=== PATIENT | male | born 1995 | race Two or more races ===

== ENCOUNTER 2023-12-23 23:51 | Emergency (ER) | payer OTHER ==
[~2023-12-23] VITALS: Ht 182.9 cm; Wt 89.4 kg
[2023-12-24] MEDS ORDERED: DIPHENHYDRAMINE HCL 50 MG/ML VIAL 1ML IV ONE (01:00)
[2023-12-24] MEDS ORDERED: 0.9 % SODIUM CHLORIDE 1,000 ML IV SCH (01:00)
[2023-12-24 01:44] LABS: HEMATOCRIT 42.3 % (39.0-48.0); HEMOGLOBIN 14.9 g/dL (13-16.00); MEAN CELL VOLUME 85.6 fL (80.0-100.00); MEAN CORPUSCULAR HEMOGLOBIN 30.1 pg (27.00-32.0); MEAN CORPUSCULAR HGB CONC 35.2 g/dl (32.0-36.0); PLATELET COUNT 308 K/uL (150-450); RED BLOOD COUNT 4.95 M/uL (4.00-6.00); RED CELL DISTRIBUTION WIDTH 13.2 % (11.5-14.5)
== END 2023-12-24 02:26 | disposition home or self-care (01) ==
LOC: ER 23:52
PROVIDERS: General Practice
DX: R53.1 Weakness (principal); F12.120 Cannabis abuse with intoxication, uncomplicated